=== PATIENT | female | born 1950 | race Caucasian/White ===

== ENCOUNTER 2023-04-11 13:47 | Emergency (ER) | payer MEDICARE ==
[~2023-04-11] VITALS: Ht 160 cm; Wt 75.2 kg
[2023-04-11] VITALS (11 sets, daily range): BP systolic 98–180; BP diastolic 54–91
[2023-04-11] MEDS ORDERED: PREVACID15 M1 PO (14:14)
[2023-04-11 14:57] LABS: BASO% 0.2 % (0-3); EOS% 0.8 % (0-8); HEMATOCRIT 46.7 % (37.0-47.0); HEMOGLOBIN 15.6 g/dl (12.0-16.0); IMMATURE GRANULOCYTES 0.2 % (0.0-5.0); LYMPH% 24.6 % (15-41); MEAN CELL VOLUME 99.2 fL CALC (80.0-100.0); MEAN CORPUSCULAR HGB 33.1 pG CALC (26.0-32.0); MEAN CORPUSCULAR HGB CONC 33.4 g/dL CAL (32.0-36.0); MONO% 8.2 % (2-13); NEUT# 7.05 thou/uL (2.00-7.15); RED BLOOD COUNT 4.71 mill/uL (4.20-5.60); RED CELL DISTRI WIDTH 11.8 % (11.5-15.5)
[2023-04-11 15:15] LABS: ALBUMIN 4.7 g/dL (3.2-5.0); ALKALINE PHOSPHATASE 80 u/l (38-126); ANION GAP 17 (6-22 (CALC)); BILIRUBIN, TOTAL 0.9 mg/dL (0.02-1.3); BUN 11 mg/dL (8-23); BUN/CREATININE RATIO 14 (12-20 (CALC)); CARBON DIOXIDE 23 mmol/l (22-30); CHLORIDE 100 mmol/l (95-108); CREATININE 0.8 mg/dL (0.5-1.0); GFR FOR AFR.AMER. > 60 ML/MIN (>=60 (CALC)); GFR OTHER RACES > 60 ML/MIN (>=60 (CALC)); POTASSIUM 3.7 mmol/l (3.5-5.1); SGOT/AST 41 u/l (9-36); SODIUM 136 mmol/l (137-146)
[2023-04-11] MEDS ORDERED: MEDDOSEPAK PO (17:34)
[2023-04-11] MEDS ORDERED: BACTRIM DS1 TAB PO ×2 (17:34→17:37)
[2023-04-11] MEDS ORDERED: MEDROL DOSEPAK4 MG PO (17:37)
[2023-04-11] MEDS ORDERED: EPIPEN 2-P0.3 MG/0.3 SC (17:37)
== END 2023-04-11 17:48 | disposition home or self-care (01) ==
LOC: ED 13:47
PROVIDERS: Family Medicine
DX: S90.861A Insect bite (nonvenomous), right foot, initial encounter (principal); L08.9 Local infection of the skin and subcutaneous tissue, unspecified; W57.XXXA Bitten or stung by nonvenomous insect and other nonvenomous arthropods, initial encounter; I10 Essential (primary) hypertension; K21.9 Gastro-esophageal reflux disease without esophagitis; F17.210 Nicotine dependence, cigarettes, uncomplicated